=== PATIENT | male | born 1995 | race Caucasian/White ===

== ENCOUNTER 2021-06-07 13:44 | Emergency (ER) | payer SELFPAY ==
[2021-01-31 13:00] VITALS: BMI 31.9
[2021-06-07 13:45] VITALS: BP 131/74; PULSE 61; PULSE 69; RESP 18; TEMP 36.3; O2SAT 98; O2SAT 99; BMI 33.5
--- NOTE | 2021-06-07 14:04 | EKG12_ITS ---
Test Reason : CP Blood Pressure : / mmHG Vent. Rate : 064 BPM Atrial Rate : 064 BPM P-R Int : 156 ms QRS Dur : 088 ms QT Int : 372 ms P-R-T Axes : 032 030 015 degrees QTc Int : 383 ms Normal sinus rhythm Normal ECG Confirmed by JULIA MOLINA, RENATE ([id number]), news editor ANDI CALZADA ([id number]) on 06/11/2021 9:27:28 AM Referred By: UVALDO Confirmed By:RENATE DUMONT MD
--- NOTE | 2021-06-07 14:06 | EX.ED.DYSGE1 ---
HPI History of Present Illness Chief Complaint: Chest Other Detail of Chief Complaint: Chest pain Informant: patient Onset/Context/Timing Onset: Weeks Context: Gradual Onset Location: Left side chest and back Current Severity: Gone Worsened by: After eating Relieved by: Nothing Associated Symptoms Associated Symptoms: Lightheadedness Narrative Narrative: Patient has intermittent chest pains that radiate to the back over the past month. He never had this before. He had some lightheadedness. Sometimes it is worse with food. No other consistent symptoms or problems. No history of heart disease, PE, aortic disease. No recent illnesses or fevers. Prior similar symptoms: No Recent Illness/Hospitalization: No PFSH PFSH Medical History No significant medical problems Home Medications Blood Pressure Suppliment 1 tab PO/SL DAILY 06/07/21 [History Last Taken Unknown] multivitamin 1 tab PO DAILY 06/07/21 [History Last Taken Unknown] naproxen 500 mg PO BID #20 tab 06/07/21 [Rx Last Taken Unknown] Allergy/AdvReac Type Severity Reaction Status Date / Time No Known Allergies Allergy Verified 06/07/21 13:45 Family History Father No problems noted. Surgical History History of hand surgery History of wisdom tooth extraction Social History Smoking Status: Never smoker ROS ROS ED Constitutional Constitutional ED: Denies chills or fever(s) Eyes Eyes: Denies change in vision ENT ENT ED: Denies ear pain Cardiovascular Cardiovascular: Reports chest pain; Denies palpitations or racing heartbeat Respiratory/Chest Respiratory/Chest: Denies cough, dyspnea or sputum Gastrointestinal Gastrointestinal: Denies abdominal pain, constipation, diarrhea, nausea or vomiting Genitourinary Genitourinary ED: Denies dysuria Musculoskeletal Musculoskeletal: Reports back pain; Denies myalgias Integumentary Denies rash Neurologic Neurologic: Denies headache(s), paresthesias or weakness Psychiatric Psychiatric: Denies depression Endocrine Endocrinology: Denies polyuria Allergic/Immunologic Allergic/Immunologic ED: Denies urticaria EXAM Physical Exam Const Vital Signs: 06/07/21 13:45 06/07/21 14:07 Temperature 97.4 F L Temperature Source Temporal Pulse Rate 69 Respiratory Rate 18 Respiratory Effort Normal Blood Pressure 131/74 H Blood Pressure Mean 93 Pulse Ox 98 99 Oxygen Delivery Method Room Air Room Air Positive well nourished and well developed General Appearance ED: well developed HEENT Negative for trauma or tenderness Eyes EOMs intact bilaterally Neck supple Resp normal respiratory effort and clear to auscultation bilaterally Cardio regular rate, regular rhythm and no murmurs GI normal to inspection, nondistended, normoactive bowel sounds and non-tender Palpation: soft Back/Spine no CVA tenderness Cervical Spine: Negative for cervical spine tenderness Thoracic Spine / Upper Back: Negative for thoracic spinal tenderness or paraspinal muscle tenderness Lumbar Spine / Lower Back: Negative for lumbar spinal tenderness Extremity normal to inspection General Extremety ED: Negative for edema or tenderness General Extremity: Negative for edema Neuro oriented x3 and no sensory deficits noted Sensorium / Orientation: alert Motor Exam: strength 5/5 throughout Psych mental status grossly normal Skin no rashes or lesions noted and no wounds MDM MDM MDM Narrative Medical decision making narrative: Patient has atypical chest pain and very low risk. No concern for PE based on his lack of risk factors and normal exam. His work-up here is unremarkable. Naproxen as needed for pain. Outpatient follow-up. Lab Data Attestation: I reviewed the patient's lab results. Labs: Laboratory Results - last 24 hr 06/07/21 06/07/21 14:00 14:00 WBC 7.4 RBC 5.63 Hgb 15.6 Hct 48.2 MCV 85.6 MCH 27.7 MCHC 32.4 RDW Std Deviation 37.8 RDW Coeff of Elmer 12.1 Plt Count 250 MPV 10.1 Immature Gran % (Auto) 0.300 Neut % (Auto) 50.0 Lymph % (Auto) 39.1 [place] % (Auto) 6.5 Eos % (Auto) 3.4 Baso % (Auto) 0.7 Absolute Neuts (auto) 3.7 Absolute Lymphs (auto) 2.90 Nucleated RBC % 0 Sodium 141 Potassium 3.8 Chloride 107 Carbon Dioxide 29.0 Anion Gap 5 BUN 11 Creatinine 1.00 Estim Creat Clear Calc 109.25 Est GFR (MDRD) Af Amer 117 Est GFR (MDRD) Non-Af 97 BUN/Creatinine Ratio 11.1 Glucose 105 Calcium 9.1 Troponin I High Sens 4.8 Radiography Chest X-Ray - ED: 1 View, Read by ED Physician and Normal Diagnostic Testing: Radiology Impression Chest X-Ray 06/07/21 14:20 IMPRESSION: Nonacute portable x-ray examination of the chest. Electronically Signed: Jm Johnson MD (Brooks) at 14:40 EDT , Service support , EKG Initial EKG: Attestation: I personally reviewed and interpreted this EKG as follows: (Sinus rhythm with no signs of ischemia or infarction pattern. Rate of 64.) Discharge Plan Triage Chief Complaint: Chest Other ED Provider: Jerzy Ledbetter Dx/Rx/DC Orders Clinical Impression: Chest pain Prescriptions: New naproxen 500 mg tablet 500 mg PO BID Qty: 20 RF: 0 No Action multivitamin Tablet 1 tab PO DAILY RF: 0 Blood Pressure Suppliment 1 tab PO/SL DAILY RF: 0 Primary Care Provider: Care Physician,No Primary Referrals: Lillian Douglas [NON-STAFF] - Care Physician,No Primary [Primary Care Provider] - Disposition Disposition: Home, Self Care
[2021-06-07 14:07] VITALS: O2SAT 99
--- NOTE | 2021-06-07 14:08 | NURSING ---
NO OLD EKGS
[2021-06-07 14:09] LABS: Absolute Neutrophil Count 3.7 X10^3/uL (2.0-7.7); Basophil# 0.05 X10^3/uL; Basophil% 0.7 % (0-1); Eosinophil# 0.25 X10^3/uL; Eosinophils% 3.4 % (0-5); Hematocrit 48.2 % (40-54); Hemoglobin 15.6 g/dL (13.0-16.5); Lymphocyte % 39.1 % (19-41); Mean Corp Hgb Conc 32.4 g/dL (32-36); Mean Corpuscular Hgb 27.7 pg (27.0-32.0); Mean Corpuscular Volume 85.6 fL (80-94); Mean Platelet Vol. 10.1 fl (6.2-12.0); Monocyte# 0.48 X10^3/uL; Monocyte% 6.5 % (0-10); NRBC Flagged by Analyzer 0 % (0-5); Neutrophil # 3.71 X10^3/uL (2.7-7.7); Platelet Count 250 K/mm3 (150-450); RBC Distribution Width CV 12.1 % (11.6-14.6); RBC Distribution Width SD 37.8 fl (35.1-43.9); Red Blood Count 5.63 M/mm3 (4.6-6.2); White Blood Count 7.4 K/mm3 (4.4-11.0)
--- NOTE | 2021-06-07 14:20 | RAD_ITS ---
STUDY: X-RAY CHEST REASON FOR EXAM: Male, 25 years old. chest pain TECHNIQUE: AP COMPARISON: None. FINDINGS: EKG leads project over the chest. The lungs are clear and expanded. There is no demonstrated pleural abnormality. Normal size heart. Normal mediastinum and alex. Normal visualized pulmonary arteries. Normal visualized aortic arch and descending thoracic aorta. Normal visualized thoracic spine. Normal visualized ribs, clavicles, and shoulders. There is no demonstrated abnormality of the visualized soft tissue structures of the upper abdomen. RAD/Chest 1 View (Portable) IMPRESSION: Nonacute portable x-ray examination of the chest. Electronically Signed: Jm Johnson MD (Brooks) at 14:40 EDT , Service support ,
[2021-06-07 14:31] LABS: Anion Gap 5 (5-15); BUN 11 mg/dL (7-18); BUN/Creat Ratio 11.1 RATIO (10-20); Calcium,Total 9.1 mg/dL (8.5-10.1); Chloride 107 mmol/L (98-107); EST Glomerular Filtration Rate 97 mL/min (>60); Est Glom Filt Rate - Afr Amer 117 mL/min (>60); Estimated Creatinine Clearance 109.25 ml/min; Glucose 105 mg/dL (74-106); Potassium 3.8 mmol/L (3.5-5.1); Sodium Level 141 mmol/L (136-145); Troponin-I HS 4.8 pg/mL (3.0-78.5)
[2021-06-07 15:17] VITALS: BP 127/67; PULSE 65; RESP 16; O2SAT 98
== END 2021-06-07 15:23 | disposition home or self-care (01) ==
PROVIDERS: Emergency Provider Emergency Medicine
DX: R07.9 Chest pain, unspecified (principal)
CPT/HCPCS: 71045; 80048; 84484; 85025; 93005; 99284; A4216

== ENCOUNTER 2023-07-31 10:58 | Emergency (ER) | payer SELFPAY ==
[2023-07-31 10:59] VITALS: BP 126/71; PULSE 76; RESP 16; TEMP 36.2; O2SAT 98; BMI 35.8
--- NOTE | 2023-07-31 11:18 | EDS_ITS ---
HPI <PATRICIA Johnson - Last Filed: 07/31/23 12:03> History of Present Illness Chief Complaint: Laceration Narrative Narrative: Patient presenting today with a laceration to his right thumb that he got today while gutting a deer after hunting. He reports that it was a new knife but it slipped and cut his thumb. He is unsure when his last tetanus was updated. Tetanus Immunization: Unknown [facility] <PATRICIA Johnson - Last Filed: 07/31/23 12:03> [facility] Medical History No significant medical problems Home Medications Blood Pressure Suppliment 1 tab PO/SL DAILY 06/07/21 [History Last Taken Unknown] multivitamin 1 tab PO DAILY 06/07/21 [History Last Taken Unknown] naproxen 500 mg tablet 500 mg PO BID #20 tabs 06/07/21 [Rx Last Taken Unknown] Allergy/AdvReac Type Severity Reaction Status Date / Time No Known Allergies Allergy Verified 07/31/23 11:05 Family History Father No problems noted. Surgical History History of hand surgery History of wisdom tooth extraction Social History Smoking Status: Never smoker ROS <PATRICIA Johnson - Last Filed: 07/31/23 12:03> ROS ED Constitutional Constitutional ED: Denies chills or fever(s) Cardiovascular Cardiovascular: Denies chest pain Respiratory/Chest Respiratory/Chest: Denies cough or dyspnea Gastrointestinal Gastrointestinal: Denies abdominal pain, nausea or vomiting Musculoskeletal Musculoskeletal: Denies arthralgias or myalgias Integumentary Reports laceration Neurologic Neurologic: Denies weakness EXAM <PATRICIA Johnson - Last Filed: 07/31/23 12:03> Physical Exam Const Vital Signs: 07/31/23 10:59 Temperature 97.1 F L Temperature Source Temporal Pulse Rate 76 Respiratory Rate 16 Blood Pressure 126/71 H Blood Pressure Mean 89 Pulse Ox 98 Oxygen Delivery Method Room Air Positive well nourished, well developed and no apparent distress General Appearance ED: well developed HEENT Reports normocephalic and head/scalp atraumatic Mouth ED: Yes moist mucous membranes normal Eyes PERRL and EOMs intact bilaterally Neck full ROM and supple Chest Wall inspection of chest normal Resp normal respiratory effort and clear to auscultation bilaterally Cardio regular rate and regular rhythm GI soft to palpation, non-tender, non-distended and no masses Back/Spine normal ROM and normal to inspection Extremity normal to inspection and full ROM Extremity Narrative: 1.5 cm linear laceration to the dorsal aspect of the right thumb below the IP joint. Full flexion and extension to the right thumb, radial pulse 2+ and equal bilaterally, good capillary refill, sensation intact. Neuro oriented x3, CN's II-XII intact bilaterally, moves all extremities, no focal motor deficits and no sensory deficits noted Sensorium / Orientation: awake and alert Psych mental status grossly normal and thought process normal Skin no rashes or lesions noted and no wounds <Dr. Thompson Bradley MD - Last Filed: 07/31/23 11:26> Physical Exam Const Vital Signs: 07/31/23 10:59 Temperature 97.1 F L Temperature Source Temporal Pulse Rate 76 Respiratory Rate 16 Blood Pressure 126/71 H Blood Pressure Mean 89 Pulse Ox 98 Oxygen Delivery Method Room Air PROC <PATRICIA Johnson - Last Filed: 07/31/23 12:03> Procedures Lacerations laceration: Length: 1.5 cm Depth: Sub Q Shape: Linear Laceration repair: Irrigated, Lidocaine and Wound explored Number of Sutures/Snehal: 2 Suture Information: Ethilon, Simple and 5-0 MDM <PATRICIA Johnson - Last Filed: 07/31/23 12:03> [facility] Narrative Medical decision making narrative: Patient presenting with a 1.5 cm laceration to dorsal aspect of his right thumb that he got earlier today from a knife when he was gutting a deer. He is well- appearing and in no acute distress, vitals are unremarkable. Tetanus will be updated here. Wound was soaked in chlorhexidine and water, extensively irrigated with saline, digital block performed with 1% lidocaine, 2 stitches were placed, wound bandaged with bacitracin ointment. He has been given education on signs of infection to look out for and reasons to return. He will be discharged home in stable condition and is comfortable with plan. He is to have stitches removed in 7 days. <Dr. Thompson Bradley MD - Last Filed: 07/31/23 11:26> [facility] Treatment and Re-Evaluation Narrative: I have personally performed a face to face assessment of the patient and have reviewed the EVIE Note. I performed a substantive portion of the visit including all aspects of the following. My carnes findings include: History is within the last couple hours accidentally cut himself on the right dorsal thumb with a hunting knife while he was getting a deer. Exam is 1.5 cm full-thickness laceration just proximal to the IPJ right dorsal thumb linear clean appearing minor venous oozing. All tendon function intact, neurovascular intact distally. Medical Decison Making clean, suture, assess for need for tetanus update Other additions or changes: [None] Discharge Plan Triage Chief Complaint: Laceration ED Midlevel Provider: Mary Fernandez ED Provider: Thompson Bradley Dx/Rx/DC Orders Clinical Impression: Laceration Instructions: ED Laceration: All Closures Prescriptions: No Action multivitamin Tablet 1 tab PO DAILY Blood Pressure Suppliment 1 tab PO/SL DAILY naproxen 500 mg tablet 500 mg PO BID Qty: 20 0RF Primary Care Provider: Care Physician,No Primary Referrals: Care Physician,No Primary [Primary Care Provider] - Activity Restrictions/Additional Instructions: Keep the cut clean, cover with a bandage and antibiotic ointment while at work. Follow-up with your PCP or return for any signs of infection. Have stitches removed in 7 days. Disposition Disposition: Home, Self Care
[2023-07-31] MEDS: Diphth,Pertuss(Acell),Tet Vac 0.5 ML Vial IM (11:27)
[2023-07-31] MEDS: Lidocaine 1% (20 ml mdv) 20 ML Vial 10 ML INFILT (12:00)
== END 2023-07-31 12:04 | disposition home or self-care (01) ==
LOC: ED 12:02
PROVIDERS: Emergency Provider Emergency Medicine; PCP Physician Assistant; Visit Provider Emergency Medicine
DX: S61.011A Laceration without foreign body of right thumb without damage to nail, initial encounter (principal); Z23 Encounter for immunization; X58.XXXA Exposure to other specified factors, initial encounter
CPT/HCPCS: 12001; 90471; 90715; 99283